=== PATIENT | male | born 1975 | race American Indian/Alaskan Native ===

== ENCOUNTER 2017-10-20 16:27 | Emergency (ER) | payer OTHER ==
[2017-10-20 17:42] VITALS: BP 166/67
[2017-10-20] MEDS ORDERED: MOTRIN PO ONE (19:55)
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
== END 2017-10-20 20:51 | disposition home or self-care (01) ==
LOC: ED 16:27
DX: S13.4XXA Sprain of ligaments of cervical spine, initial encounter (principal); V89.2XXA Person injured in unspecified motor-vehicle accident, traffic, initial encounter; Y93.89 Activity, other specified; Y99.8 Other external cause status; Y92.410 Unspecified street and highway as the place of occurrence of the external cause
CPT/HCPCS: 99282